=== PATIENT | male | born 1945 | race Caucasian/White ===

== ENCOUNTER 2018-08-24 15:30 | Emergency (ER) | payer MEDICARE, OTHER ==
[2018-08-24] MEDS ORDERED: Lidocaine 1% PF 5 ML VIAL ONE (17:39)
[2018-08-24] MEDS ORDERED: Adacel (T-DAP) 0.5 ML SYRINGE ONE (18:13)
== END 2018-08-24 18:30 | disposition home or self-care (01) ==
LOC: ERS 15:30
DX: S01.511A Laceration without foreign body of lip, initial encounter (principal); S01.81XA Laceration without foreign body of other part of head, initial encounter; I10 Essential (primary) hypertension; Z79.899 Other long term (current) drug therapy; W22.8XXA Striking against or struck by other objects, initial encounter
CPT/HCPCS: 12011; 12051; 90471; 90715; J2001

== ENCOUNTER 2020-04-26 22:29 | Emergency (ER) | payer MEDICARE ==
[2020-04-26 23:24] LABS: Bacteria/HPF None Seen HPF (None Seen); Bilirubin Negative (Negative); Blood, Urine 3+ (Negative); Clarity Extra Turbid (Clear); Glucose, Urine (Dipstick) Normal (Negative); Ketone, Urine Negative (Negative); Leukocyte 500 Leu/uL (Negative); Nitrite Negative (Negative); Protein, Urine (Dipstick) 100 mg/dL (Neg-Trace); RBC/HPF Greater than 50 HPF (0-3); Specific Gravity, Urine 1.016 (1.002-1.036); Squamous Epithelial None Seen HPF (0-3); Urobilinogen Normal mg/dL (Less than 2); WBC/HPF Greater than 50 HPF (0-3); pH, Urine 6.5 (5.0-9.0)
== END 2020-04-27 00:37 | disposition home or self-care (01) ==
LOC: ERS 22:29
DX: N30.91 Cystitis, unspecified with hematuria (principal); I10 Essential (primary) hypertension; Z87.891 Personal history of nicotine dependence; E78.2 Mixed hyperlipidemia
CPT/HCPCS: 36415; 80061; 81003; 81015; 87086

== ENCOUNTER 2020-05-02 09:22 | Outpatient (CLI) | payer MEDICARE | END 2020-05-02 09:23 | disposition home or self-care (01) | LOC: LABBT 09:22 | PROVIDERS: ATTEND Urology | DX: Z01.818 Encounter for other preprocedural examination (principal); N40.1 Benign prostatic hyperplasia with lower urinary tract symptoms; N32.81 Overactive bladder; N35.914 Unspecified anterior urethral stricture, male | CPT/HCPCS: 80048; 81001; 85027; 87077; 87086; 87186; 93005; 93010 ==

== ENCOUNTER 2020-05-07 06:44 | Observation (INO) | payer MEDICARE ==
[2020-05-06 11:31] VITALS: BMI 21.6
[2020-05-07] MEDS ORDERED: Levofloxacin 500 mg/D5W 100 ml Premix Bag ONE (10:05)
[2020-05-07] MEDS ORDERED: Fentanyl 100 MCG/2 ML VIAL ONE ×3 (10:09→13:16)
[2020-05-07] MEDS ORDERED: PROPOFOL 200 MG/20 ML VIAL ONE (10:25)
[2020-05-07] MEDS ORDERED: Dexamethasone 20 MG/5 ML VIAL ONE (10:25)
[2020-05-07] MEDS ORDERED: ePHEDrine 50 MG/ML VIAL ONE (10:25)
[2020-05-07] MEDS ORDERED: PHENYLEPHRINE-NS 100 MCG/ML 10 ML SYRINGE ONE (10:25)
[2020-05-07] MEDS ORDERED: Ondansetron PF 4 MG/2 ML Vial ONE (10:25)
[2020-05-07] MEDS ORDERED: Lidocaine 1% PF 5 ML VIAL ONE (10:25)
[2020-05-07] MEDS ORDERED: HYDROcodone/Acetaminophen 5/325 mg Tablet ONE (13:56)
[2020-05-07] MEDS ORDERED: hydrALAZINE 20 MG/ML VIAL SLOW IVP PRN (16:47)
[2020-05-07] MEDS ORDERED: Ondansetron PF 4 MG/2 ML Vial IVP PRN (16:47)
[2020-05-07] MEDS ORDERED: Ketorolac Tromethamine 30 MG/ML VIAL IVP PRN (16:47)
[2020-05-07] MEDS ORDERED: Oxybutynin 5 MG TAB PO PRN (16:47)
[2020-05-07] MEDS ORDERED: diphenhydrAMINE 50 MG/ML VIAL IVP PRN (16:47)
[2020-05-07] MEDS ORDERED: Zolpidem Tartrate 5 MG TAB PO PRN (16:47)
[2020-05-07] MEDS ORDERED: HYDROcodone/Acetaminophen 5/325 mg Tablet PO PRN (16:47)
[2020-05-07] MEDS: Hyoscyamine Sulfate SL 0.125 mg Tablet PO SCH ×2 (21:02→23:52)
[2020-05-07] MEDS: Famotidine/PF 20 mg/2ml Vial SLOW IVP SCH (21:36)
[2020-05-07] MEDS: Primidone 50 MG TAB PO SCH (21:36)
[2020-05-07] MEDS: Phenazopyridine HCl 100 MG TAB PO SCH (21:36)
[2020-05-07] MEDS: Docusate 100 MG CAP PO SCH (21:36)
[2020-05-08] MEDS: Sodium Chloride 0.9% 1,000 ML IV SCH ×2 (04:03)
[2020-05-08] MEDS: Hyoscyamine Sulfate SL 0.125 mg Tablet PO SCH ×3 (04:03→13:07)
[2020-05-08] MEDS ORDERED: Lisinopril 10 MG TAB PO SCH (09:00)
[2020-05-08] MEDS ORDERED: Nebivolol HCl 5 MG TAB PO SCH (09:00)
[2020-05-08] MEDS: Primidone 50 MG TAB PO SCH (09:50)
[2020-05-08] MEDS: Docusate 100 MG CAP PO SCH (09:50)
[2020-05-08] MEDS: Phenazopyridine HCl 100 MG TAB PO SCH (09:50)
[2020-05-08] MEDS: Famotidine/PF 20 mg/2ml Vial SLOW IVP SCH (09:50)
[2020-05-08 11:52] VITALS: BP 157/92; TEMP 98.5
== END 2020-05-08 13:51 | disposition home or self-care (01) ==
LOC: SDC 06:44 → SURG B 16:47
PROVIDERS: ADMIT Urology; ATTEND Urology
PROC: 0VT08ZZ Resection of Prostate, Via Natural or Artificial Opening Endoscopic (ICD-10-PCS; principal; 2020-05-07)
DX: N40.1 Benign prostatic hyperplasia with lower urinary tract symptoms (principal); N39.498 Other specified urinary incontinence; R35.0 Frequency of micturition; R35.1 Nocturia; R39.12 Poor urinary stream; R39.15 Urgency of urination; R39.16 Straining to void; N32.89 Other specified disorders of bladder; N32.3 Diverticulum of bladder; N21.0 Calculus in bladder; N32.81 Overactive bladder; I10 Essential (primary) hypertension; E78.00 Pure hypercholesterolemia, unspecified; G25.0 Essential tremor; Z87.891 Personal history of nicotine dependence; Z79.899 Other long term (current) drug therapy; Z88.2 Allergy status to sulfonamides
CPT/HCPCS: 88305; 96374; 96376; G0378; J1100; J1956; J2405; J2704; J3010; J3490; S0028

== ENCOUNTER 2020-05-14 00:49 | Emergency (ER) | payer MEDICARE | END 2020-05-14 03:13 | disposition home or self-care (01) | LOC: ERS 00:49 | DX: N40.1 Benign prostatic hyperplasia with lower urinary tract symptoms (principal); I10 Essential (primary) hypertension; Z87.891 Personal history of nicotine dependence; Z79.899 Other long term (current) drug therapy | CPT/HCPCS: 51702 ==

== ENCOUNTER 2024-02-15 19:51 | Inpatient (IN) | payer MEDICARE, OTHER ==
[2024-02-15 20:08] LABS: #Basophils Less than 0.03 10x3/uL (0.0-0.2); %Basophils 0.1 % (0.0-1.0); %Eosinophils 0.4 % (0.0-10.0); %Monocytes 6.1 % (0.0-10.0); Actual Bicarbonate (HCO3v) 27.7 mEq/L (22-28); Base Excess 2.5 mEq/L (-2.0 to +3.0); Calcium, Ionized (venous) 1.11 mmol/L (1.16-1.32); Chloride (VBG) 104 mmol/L (98-106); Hematocrit 41.2 % (42.0-52.0); Hematocrit-VBG 43 % (42.0-52.0); Hemoglobin 13.8 g/dL (14.0-18.0); Hemoglobin (Hb) 14.7 g/dL (12.6-17.4); Mean Corpuscular HGB CONC 33.5 g/dL (32.0-36.0); Mean Corpuscular Hemoglobin 33.2 pg (27.0-31.0); Mean Platelet Volume 10.3 fL (7.4-10.4); Platelet Count 152 10x3/uL (130-400); RBC Distribution Width 13.2 % (11.5-14.5); Red Blood Cell (RBC) Count 4.16 mill/uL (4.70-6.10); Sodium 142 mmol/L (133-146); pH (venous) 7.407 (7.32-7.43)
[2024-02-15 20:24] LABS: Prothrombin Time 12.9 sec (12.0-14.7)
[2024-02-15 20:29] LABS: ALT (SGPT) 24 U/L (8-55); AST (SGOT) 21 U/L (5-34); Albumin 4.1 g/dL (3.4-4.8); Alkaline Phosphatase 57 U/L (40-110); Anion Gap 15 mmol/L (10-20); BUN (Urea Nitrogen) 19 mg/dL (8.4-25.7); Bilirubin, Total 0.6 mg/dL (0.2-1.2); Calc. Creatinine Clearance 0 mL/min (70-130); Carbon Dioxide 23 mmol/L (23-31); Chloride 109 mmol/L (98-107); Estimated GFR 93; Globulin 2.4 g/dL (2.4-3.5); Glucose 159 mg/dL (83-110); PTT 21.4 sec (22.9-36.1); Potassium 3.9 mmol/L (3.5-5.1); Protein, Total 6.5 g/dL (5.8-8.1); Sodium 143 mmol/L (136-145)
[2024-02-15] MEDS ORDERED: SUCCINYLCHOLINE/SOD CL,ISO/PF 200 MG/10 ML SYRINGE FS ONE (20:32)
[2024-02-15] MEDS ORDERED: Propofol 1,000 MG/100 ML VIAL IV ONE (20:32)
[2024-02-15] MEDS ORDERED: Etomidate 40 MG (20 mL) VIAL ONE (20:32)
[2024-02-15 20:42] LABS: Actual Bicarbonate (HCO3a) 23.3 mEq/L (22-28); Analyzer IN Cardio ER; Base Excess (BEa) -0.7 mEq/L (-2.0 to +3.0); CO2 Tension 36.5 mmHg (35.0-45.0); Calcium, Ionized (arterial) 1.17 mmol/L (1.12-1.30); Carboxyhemoglobin (COHb) 0.7 gm% (0.0-3.0); Hematocrit-ABG 41 % (42.0-52.0); O2 Tension (PaO2), arterial 176.2 mmHg (> 70.0); Potassium - ABG Lab 4.22 mmol/L (3.70-5.30); pH, Arterial 7.423 (7.35-7.45)
[2024-02-15 20:44] LABS: ALV-art Gradient 134.675 mmHg (0-20); Puncture Site Right Radial artery
[2024-02-15] MEDS ORDERED: Vancomycin 1 GM VIAL ONE (20:50)
[2024-02-15] MEDS ORDERED: EPINEPHrine 1 MG/ML VIAL ONE (20:50)
[2024-02-15] MEDS ORDERED: Bacitracin Zinc Ointment 30 gm TUBE ONE (20:50)
[2024-02-15] MEDS ORDERED: Lidocaine 1% (PF) 30 ML VIAL ONE (20:50)
[2024-02-15] MEDS ORDERED: Thrombin 5000 UNITS/5 ML VIAL ONE (20:50)
[2024-02-15] MEDS ORDERED: Mannitol 12.5 GM/50 ML ONE (20:56)
[2024-02-15] MEDS ORDERED: levETIRAcetam 500 MG (5 mL) VIAL ONE ×2 (20:57→21:11)
[2024-02-15] MEDS ORDERED: Ondansetron PF 4 MG/2 ML Vial IVP PRN (21:03)
[2024-02-15] MEDS ORDERED: Dextrose 5% in Water 1,000 ML IV PRN (21:03)
[2024-02-15] MEDS ORDERED: Dextrose 50% Abboject 50 ML SYRINGE SLOW IVP PRN (21:03)
[2024-02-15] MEDS ORDERED: Glucagon 1 MG/ML KIT IM PRN (21:03)
[2024-02-15] MEDS ORDERED: Fentanyl 250 MCG/5 ML VIAL ONE (21:18)
[2024-02-15] MEDS ORDERED: PROPOFOL 20 ML ONE (21:19)
[2024-02-15] MEDS ORDERED: Dexamethasone 4 mg/ml Vial ONE (21:19)
[2024-02-15] MEDS ORDERED: Ondansetron PF 4 MG/2 ML Vial ONE (21:19)
[2024-02-15] MEDS ORDERED: Rocuronium Bromide 10 MG/ML (10ML VIAL) ONE (21:24)
[2024-02-15 21:30] LABS: Bilirubin Negative (Negative); Blood, Urine 3+ (Negative); CAUTI Indications for Culture Alt mental st,lethar; Clarity Turbid (Clear); Glucose, Urine (Dipstick) 70 mg/dL (Negative); Ketone, Urine 20 mg/dL (Negative); Leukocyte Negative Leu/uL (Negative); Nitrite Negative (Negative); Protein, Urine (Dipstick) 20 mg/dL (Neg-Trace); RBC/HPF Greater than 50 HPF (0-3); Specific Gravity, Urine 1.014 (1.002-1.036); Squamous Epithelial 0-3 HPF (0-3); Urobilinogen Normal mg/dL (Less than 2); WBC/HPF 21-50 HPF (0-3); pH, Urine 7.5 (5.0-9.0)
[2024-02-15 21:31] LABS: Bacteria/HPF Rare-Few HPF (None Seen)
[2024-02-15 21:32] LABS: Urine Culture Reflex Yes Yes
[2024-02-15] MEDS ORDERED: CEFAZOLIN 1 GM VIAL ONE (22:10)
[2024-02-15] MEDS ORDERED: Electrolyte Replacement Protocol 1 EACH FS SCH (22:15)
[2024-02-15] MEDS ORDERED: PHENYLEPHRINE-NS 100 MCG/ML 10 ML SYRINGE ONE (22:26)
[2024-02-15 22:42] LABS: Glucose 133 mg/dL (83-110)
[2024-02-15] MEDS ORDERED: Phenylephrine 40 MG/NS 250 ML 250 ML ONE (23:09)
[2024-02-16] MEDS: hydrALAZINE 20 MG/ML VIAL SLOW IVP PRN (01:40)
[2024-02-16] MEDS: Sodium Chloride 0.9% 1,000 ML IV SCH (01:45)
[2024-02-16] MEDS ORDERED: Propofol 1,000 MG/100 ML VIAL IV PRN (02:00)
[2024-02-16] MEDS ORDERED: Fentanyl BOLUS 250 ML IVPB PRN (02:00)
[2024-02-16] MEDS ORDERED: niCARdipine 25 MG in Sodium Chloride 0.9% 250 ML 250 ML IVPB SCH (02:00)
[2024-02-16] MEDS ORDERED: Propofol BOLUS 1,000 MG/100 ML VIAL IV PRN (02:00)
[2024-02-16] MEDS ORDERED: Lorazepam 2 MG/ML VIAL SLOW IVP PRN (02:00)
[2024-02-16] MEDS: Fentanyl CADD 100 ML IV SCH (02:20)
[2024-02-16] MEDS: Morphine 2 MG/ML VIAL SLOW IVP PRN (02:45)
[2024-02-16] MEDS: Sodium Chloride 0.9% 500 ML IV SCH ×2 (03:46→06:00)
[2024-02-16 05:19] LABS: #Basophils Less than 0.03 10x3/uL (0.0-0.2); #Eosinophils Less than 0.03 10x3/uL (0.0-0.7); %Basophils 0.1 % (0.0-1.0); %Eosinophils 0.1 % (0.0-10.0); %Lymphocytes 3.1 % (21.0-51.0); %Monocytes 3.6 % (0.0-10.0); %Neutrophils 92.8 % (42.0-75.0); Hematocrit 29.5 % (42.0-52.0); Hemoglobin 9.8 g/dL (14.0-18.0); Mean Corpuscular HGB CONC 33.2 g/dL (32.0-36.0); Mean Corpuscular Hemoglobin 33.2 pg (27.0-31.0); Platelet Count 191 10x3/uL (130-400); RBC Distribution Width 13.2 % (11.5-14.5); Red Blood Cell (RBC) Count 2.95 mill/uL (4.70-6.10)
[2024-02-16 05:30] LABS: Anion Gap 12 mmol/L (10-20); BUN (Urea Nitrogen) 16 mg/dL (8.4-25.7); Calc. Creatinine Clearance 73 mL/min (70-130); Calcium 7.5 mg/dL (7.8-10.44); Carbon Dioxide 24 mmol/L (23-31); Chloride 111 mmol/L (98-107); Estimated GFR 94; Glucose 127 mg/dL (83-110); Potassium 3.8 mmol/L (3.5-5.1); Sodium 143 mmol/L (136-145)
[2024-02-16] MEDS: Ipratropium/Albuterol 3 ML NEB NEB SCH (06:58)
[2024-02-16] MEDS: CEFAZOLIN 2 GM in Sodium Chloride 0.9% 100 ML IVPB SCH (07:14)
[2024-02-16] MEDS: Lactated Ringer's 1,000 ML IV SCH (08:20)
[2024-02-16] MEDS: Famotidine/PF 20 mg/2ml Vial SLOW IVP SCH (09:00)
[2024-02-16] MEDS: NOREPINEPHRINE 8 MG/250 ML-D5W 250 ML IVPB SCH (10:50)
[2024-02-16] MEDS ORDERED: Iopamidol-370 76% 500 ML MDV (1 ML CHARGE) ONE (14:21)
[2024-02-16] MEDS: FLU (Fluad Triv) TS24-25 (65UP)/MF59C/PF 45 MCG/0.5 ML Syringe IM ONE (19:20)
[2024-02-17 03:52] LABS: Anion Gap 11 mmol/L (10-20); BUN (Urea Nitrogen) 13 mg/dL (8.4-25.7); Calc. Creatinine Clearance 82 mL/min (70-130); Calcium 7.7 mg/dL (7.8-10.44); Carbon Dioxide 20 mmol/L (23-31); Chloride 115 mmol/L (98-107); Estimated GFR 97; Glucose 117 mg/dL (83-110); Potassium 3.2 mmol/L (3.5-5.1); Sodium 143 mmol/L (136-145)
[2024-02-17 04:23] LABS: #Basophils Less than 0.03 10x3/uL (0.0-0.2); %Eosinophils 0.8 % (0.0-10.0); %Lymphocytes 6.1 % (21.0-51.0); %Monocytes 9.8 % (0.0-10.0); %Neutrophils 82.9 % (42.0-75.0); Hemoglobin 8.6 g/dL (14.0-18.0); Mean Corpuscular HGB CONC 33.1 g/dL (32.0-36.0); Mean Corpuscular Hemoglobin 33.2 pg (27.0-31.0); Mean Corpuscular Volume 100.4 fL (78.0-98.0); Mean Platelet Volume 10.9 fL (7.4-10.4); Platelet Count 130 10x3/uL (130-400); RBC Distribution Width 13.5 % (11.5-14.5); Red Blood Cell (RBC) Count 2.59 mill/uL (4.70-6.10)
[2024-02-17 06:44] VITALS: BMI 22.7
[2024-02-17] MEDS: Potassium Chloride 20 MEQ in Premix 1 BAG IVPB SCH (07:38)
[2024-02-17 08:02] LABS: Magnesium 1.5 mg/dL (1.6-2.6); Phosphorus 1.5 mg/dL (2.3-4.7)
[2024-02-17] MEDS: Magnesium 2 GM/50 ML(in water) 2 GM in Premix 1 BAG IVPB SCH (08:47)
[2024-02-17] MEDS: Potassium Phosphate 22 MMOL in Sodium Chloride 0.9% 250 ML 250 ML IVPB SCH (08:47)
[2024-02-17] MEDS: niCARdipine 25 MG in Sodium Chloride 0.9% 250 ML 250 ML IVPB SCH (09:18)
[2024-02-17 10:51] VITALS: BMI 22.7
[2024-02-17] MEDS: Acetaminophen 650 MG/20.3 ML UDCUP PO PRN (14:11)
[2024-02-17 14:12] VITALS: TEMP 101.3
[2024-02-17 14:34] VITALS: BP 113/65
[2024-02-18 07:04] LABS: Anion Gap 12 mmol/L (10-20); BUN (Urea Nitrogen) 13 mg/dL (8.4-25.7); Calc. Creatinine Clearance 101 mL/min (70-130); Calcium 7.8 mg/dL (7.8-10.44); Carbon Dioxide 16 mmol/L (23-31); Chloride 118 mmol/L (98-107); Estimated GFR 99; Glucose 84 mg/dL (83-110); Magnesium 1.9 mg/dL (1.6-2.6); Phosphorus 1.6 mg/dL (2.3-4.7); Potassium 4.3 mmol/L (3.5-5.1); Sodium 142 mmol/L (136-145)
[2024-02-18 07:20] LABS: Hematocrit 24.9 % (42.0-52.0); Hemoglobin 8.3 g/dL (14.0-18.0); Mean Corpuscular HGB CONC 33.3 g/dL (32.0-36.0); Mean Corpuscular Hemoglobin 33.3 pg (27.0-31.0); Mean Platelet Volume 10.9 fL (7.4-10.4); Platelet Count 124 10x3/uL (130-400); RBC Distribution Width 13.6 % (11.5-14.5); Red Blood Cell (RBC) Count 2.49 mill/uL (4.70-6.10)
[2024-02-18 08:06] LABS: Band 41 % (5-11); Burr Cells SLIGHT = 2-5 cells HPF (0-1); Large Platelets 11.4 % (0-5); Lymphocytes 6 % (21-51); Metamyelocyte 7 % (0-0); Monocytes 9 % (0-10); Neutrophil 38 % (42-75); Platelet Adequacy Comment Platelets Decreased; Polychromasia SLIGHT = 2-3 cells HPF (0-2); Smudge Cells 9.5 %
[2024-02-18 08:07] LABS: Dohle Bodies SLIGHT; Vacuoles MODERATE
[2024-02-18] MEDS: Potassium Phosphate 15 MMOL in Sodium Chloride 0.9% 100 ML IVPB SCH (08:20)
[2024-02-18] MEDS: Magnesium 2 GM/50 ML(in water) 2 GM in Premix 1 BAG IVPB SCH (08:20)
[2024-02-18] MEDS ORDERED: Acetaminophen 650 MG Suppository PR PRN (15:56)
[2024-02-18] MEDS: Glycopyrrolate 0.4 MG/ 2 ML VIAL SLOW IVP PRN (16:47)
[2024-02-18] MEDS: Morphine 4 MG/ML VIAL SLOW IVP PRN (16:47)
[2024-02-18] MEDS: Lorazepam 2 MG/ML VIAL SLOW IVP PRN (16:49)
== END 2024-02-18 17:37 | disposition expired | DRG 25 ==
LOC: ERS 19:51 → SDC 21:31 → CCU 21:32
PROVIDERS: ADMIT Neurological Surgery; ATTEND Neurological Surgery
PROC: 00940ZZ Drainage of Intracranial Subdural Space, Open Approach (ICD-10-PCS; principal; 2024-02-15)
PROC: 00P00MZ Removal of Neurostimulator Lead from Brain, Open Approach (ICD-10-PCS; 2024-02-15)
PROC: 5A1945Z Respiratory Ventilation, 24-96 Consecutive Hours (ICD-10-PCS; 2024-02-16)
PROC: 0BH17EZ Insertion of Endotracheal Airway into Trachea, Via Natural or Artificial Opening (ICD-10-PCS; 2024-02-16)
PROC: XX20X89 Monitoring of Brain Electrical Activity, Computer-aided Detection and Notification, New Technology Group 9 (ICD-10-PCS; 2024-02-17)
DX: S06.5XAA Traumatic subdural hemorrhage with loss of consciousness status unknown, initial encounter (principal); J69.0 Pneumonitis due to inhalation of food and vomit; J96.01 Acute respiratory failure with hypoxia; E78.5 Hyperlipidemia, unspecified; I10 Essential (primary) hypertension; R40.2353 Coma scale, best motor response, localizes pain, at hospital admission; R40.2113 Coma scale, eyes open, never, at hospital admission; R40.2213 Coma scale, best verbal response, none, at hospital admission; W19.XXXA Unspecified fall, initial encounter; Y93.01 Activity, walking, marching and hiking; E83.42 Hypomagnesemia; E83.39 Other disorders of phosphorus metabolism; Z66 Do not resuscitate; N40.0 Benign prostatic hyperplasia without lower urinary tract symptoms; E87.8 Other disorders of electrolyte and fluid balance, not elsewhere classified; R00.0 Tachycardia, unspecified; Z86.73 Personal history of transient ischemic attack (TIA), and cerebral infarction without residual deficits; Z85.828 Personal history of other malignant neoplasm of skin; Z79.82 Long term (current) use of aspirin; Z79.02 Long term (current) use of antithrombotics/antiplatelets; Z79.899 Other long term (current) drug therapy; Z88.2 Allergy status to sulfonamides; Z88.8 Allergy status to other drugs, medicaments and biological substances; Z90.79 Acquired absence of other genital organ(s); Z90.49 Acquired absence of other specified parts of digestive tract; Z96.82 Presence of neurostimulator; Y92.89 Other specified places as the place of occurrence of the external cause; Z51.5 Encounter for palliative care
CPT/HCPCS: 31500; 36415; 36416; 36430; 36600; 70450; 71045; 72125; 72170; 74177; 80048; 80053; 81001; 82805; 83735; 84100; 85025; 85610; 85730; 86850; 86900; 86901; 87086; 93306; 94003; 94640; 96365; 96368; C1713; C1876; C1889; G0390; J0171; J0360; J0690; J1100; J1953; J2060; J2150; J2272; J2405; J2704; J3010; J3370; J3475; J3480; J3490; J7030; J7050; J7120; J7620; P9035; Q9967